=== PATIENT | female | born 1980 | race Caucasian/White ===

== ENCOUNTER 2018-11-05 15:33 | Emergency (ER) | payer BC ==
[2018-11-05] MEDS ORDERED: KETOROLAC TROMETHAMINE 30 MG/1 ML VIAL IVPUSH ONE (15:55)
[2018-11-05] MEDS ORDERED: ONDANSETRON 4 MG/2 ML VIAL IVPB ONE (15:55)
[2018-11-05] MEDS ORDERED: hydrOXYzine PAMOATE 50 MG CAPSULE (FP) PO ONE (15:56)
[2018-11-05 16:03] VITALS: BP 141/86; PULSE 74; TEMP 98.5
[2018-11-05] MEDS ORDERED: hydrOXYzine PAMOATE 25 MG CAPSULE (FP) PO ONE (16:13)
[2018-11-05] MEDS ORDERED: KETOROLAC TROMETHAMINE 30 MG/1 ML VIAL ONE (16:14)
[2018-11-05] MEDS ORDERED: ONDANSETRON 4 MG/2 ML VIAL ONE (16:14)
--- NOTE | 2018-11-05 17:47 | PDOC ---
Documentation entered by Yazmin Lamb SCRIBE, acting as scribe for Lemuel Salinas MD. Lemuel Salinas MD: This documentation has been prepared by the lizaibAdonis gutierrez Natalie, SCRIBE, under my direction and personally reviewed by me in its entirety. I confirm that the documentation accurately reflects all work, treatment, procedures, and medical decision making performed by me. History of Present Illness - General Chief Complaint: Migraine Headache Stated Complaint: MIRAINE History Source: Patient Exam Limitations: No Limitations - History of Present Illness Initial Comments: 11/05/18 15:34 The patient is a 38-year-old female, with a past medical history of migraines, bacterial meningitis (19 yrs old), who presents to the ED with a migraine headache. Her symptoms began on Saturday and she has tried multiple medications that her Neurologist has prescribed for her with no relief of her symptoms. She reports that she has experienced similar migraines in the past, but has not experienced one this severe in quite awhile. She also endorses light and smell sensitivity. The patient is visiting from [place] and has an upcoming appointment with her Neurologist on 11/17/18. The patient denies any fevers, chills, nausea, vomiting, diarrhea, or abdominal pain. She denies any chest pain or shortness of breath. She denies any visual changes, weakness, dizziness, lightheadedness, or changes in strength or sensation. Allergies: Nitrofurantoin, Nitrofurantoin macrocrystalline. Past History - Past Medical History Allergies/Adverse Reactions: Allergies Allergy/AdvReac Type Severity Reaction Status Date / Time nitrofurantoin Allergy Verified 11/05/18 15:34 [From Macrobid] nitrofurantoin Allergy Verified 11/05/18 15:34 macrocrystalline [From Macrobid] Sulfa (Sulfonamide Allergy Verified 11/05/18 15:34 Antibiotics) [Sulfa(Sulfonamide Antibiotics)] Home Medications: Ambulatory Orders Nadolol 80 mg PO DAILY 05/23/12 Amitriptyline HCl [Elavil -] 50 mg PO DAILY 11/05/18 Control 1 mg PO DAILY 11/05/18 Clonazepam [Klonopin] 2 mg PO DAILY 11/05/18 Diclofenac Sodium [Voltaren -] 75 mg PO BID PRN #14 tablet. 11/05/18 Ondansetron [Zofran Odt -] 4 mg SL TID PRN #10 od.tablet 11/05/18 Rizatriptan Benzoate [Rizatriptan] 10 mg PO BID 11/05/18 Tramadol HCl [Ultram] 50 mg PO DAILY 11/05/18 hydrOXYzine PAMOATE [Vistaril -] 25 - 50 mg PO QID PRN #20 capsule 11/05/18 - Immunization History Td Vaccination: Yes Immunization Up to Date: Yes - Suicide/Smoking/Psychosocial Hx Smoking Status: Yes Smoking History: Current every day smoker Number of Cigarettes Smoked Daily: 2 Review of Systems - Review of Systems Able to Perform ROS?: Yes Comments:: 11/05/18 16:06 CONSTITUTIONAL: Absent: fever, chills, diaphoresis, generalized weakness, malaise, loss of appetite HEENT: (+)Photophobia, smell sensitivity. Absent: rhinorrhea, nasal congestion, throat pain, throat swelling, difficulty swallowing, mouth swelling, ear pain. CARDIOVASCULAR: Absent: chest pain, syncope, palpitations, irregular heart rate, lightheadedness , peripheral edema RESPIRATORY: Absent: cough, shortness of breath, dyspnea with exertion, orthopnea, wheezing, stridor, hemoptysis GASTROINTESTINAL: Absent: abdominal pain, abdominal distension, nausea, vomiting, diarrhea, constipation, melena, hematochezia GENITOURINARY: Absent: dysuria, frequency, urgency, hesitancy, hematuria, flank pain, genital pain MUSCULOSKELETAL: Absent: myalgia, arthralgia, joint swelling SKIN: Absent: rash, itching, pallor HEMATOLOGIC/IMMUNOLOGIC: Absent: easy bleeding, easy bruising, lymphadenopathy, frequent infections ENDOCRINE: Absent: unexplained weight gain, unexplained weight loss, heat intolerance, cold intolerance NEUROLOGIC: (+)Headache. Absent: focal weakness or paresthesias, dizziness, unsteady gait, seizure, mental status changes, bladder or bowel incontinence PSYCHIATRIC: Absent: anxiety, depression, suicidal or homicidal ideation, hallucinations. *Physical Exam - Vital Signs Last Vital Signs Temp Pulse Resp BP Pulse Ox 98.5 F 74 18 141/86 100 11/05/18 15:34 11/05/18 15:34 11/05/18 15:34 11/05/18 15:34 11/05/18 15:34 - Physical Exam Comments: 11/05/18 16:07 GENERAL: Well-appearing, well-nourished. No apparent distress. HEENT: Normocephalic, atraumatic. PERRL, EOM intact. CARDIOVASCULAR: Normal S1, S2. Regular rate and rhythm. PULMONARY: Clear to auscultation bilaterally. NEUROLOGICAL: Cranial nerves 2-12 intact. Optic fundi were well visualized and were normal. Strength full and symmetrical. No strength, sensory, or motor deficits. No focal neurological deficits. ED Treatment Course - Medications Given in the ED: ED Medications Discontinued Medications Generic Name Dose Route Start Last Admin Trade Name Freq PRN Reason Stop Dose Admin Hydroxyzine Pamoate 50 mg 11/05/18 15:56 11/05/18 16:18 Vistaril - PO 11/05/18 15:57 50 mg ONCE ONE Administration Ketorolac Tromethamine 30 mg 11/05/18 15:55 11/05/18 16:18 Toradol Injection - IVPUSH 11/05/18 15:56 30 mg ONCE ONE Administration Ondansetron HCl 4 mg 11/05/18 15:55 11/05/18 16:18 Zofran Injection IVPB 11/05/18 15:56 4 mg ONCE ONE Administration Medical Decision Making - Medical Decision Making 11/05/18 17:44 Patient with a long history of migraine headaches managed at home with a triptan. Under increased stress lately with persistent headache for 4-5 days. Continue his chronic beta jhony therapy. Occasionally takes Percocet for chronic right foot pain status post surgery. Has not used Percocet for the headache. Headache is bilateral, behind the eyes, with photophobia, nausea, no vomiting. This is her usual pattern. There is no difference in her symptomatology other than for severity. There are no focal neurologic symptoms or unsteadiness of gait Physical exam is entirely normal, including neurologic Patient treated with Toradol and Vistaril and Zofran, significant relief of symptoms. Prescribed diclofenac, Vistaril, and Zofran for use at home as necessary. Neurology referral. Fully ambulatory and in no significant pain or other distress at discharge. *DC/Admit/Observation/Transfer Diagnosis at time of Disposition: Migraine Qualifiers: Migraine type: unspecified Status migrainosus presence: without status migrainosus Intractability: not intractable Qualified Code(s): G43.909 - Migraine, unspecified, not intractable, without status migrainosus - Discharge Dispostion Disposition: HOME Condition at time of disposition: Improved Decision to Admit order: No - Prescriptions Prescriptions: Diclofenac Sodium [Voltaren -] 75 mg PO BID PRN #14 tablet.dr PRN Reason: Headache hydrOXYzine PAMOATE [Vistaril -] 25 - 50 mg PO QID PRN #20 capsule PRN Reason: Headache Ondansetron [Zofran Odt -] 4 mg SL TID PRN #10 od.tablet PRN Reason: Nausea And/Or Vomiting - Referrals Referrals: Ronald Valdez MD [Staff Physician] - - Patient Instructions Printed Discharge Instructions: DI for Migraine - Post Discharge Activity
== END 2018-11-05 17:01 | disposition home or self-care (01) ==
LOC: FER 15:33
PROC: 3E0333Z Introduction of Anti-inflammatory into Peripheral Vein, Percutaneous Approach (ICD-10-PCS; principal; 2018-11-05)
PROC: 3E033GC Introduction of Other Therapeutic Substance into Peripheral Vein, Percutaneous Approach (ICD-10-PCS; 2018-11-05)
DX: G43.909 Migraine, unspecified, not intractable, without status migrainosus (principal); F17.210 Nicotine dependence, cigarettes, uncomplicated
CPT/HCPCS: 99282-25

== ENCOUNTER 2021-11-04 15:15 | Emergency (ER) | payer BC, OTHER ==
[2021-11-04] MEDS ORDERED: DEXAMETHASONE SOD PHOSPHATE 10 MG/1 ML VIAL IVPUSH ONE (15:43)
[2021-11-04] MEDS ORDERED: METOCLOPRAMIDE HCL INJECTION 10 MG/2 ML VIAL IVPB ONE (15:43)
[2021-11-04] MEDS ORDERED: ACETAMINOPHEN 1000 MG/100 ML BAG IVPB ONE (15:43)
[2021-11-04] MEDS ORDERED: SODIUM CHLORIDE 1,000 ML IV STA (15:43)
[2021-11-04 15:44] VITALS: BP 114/73; PULSE 68; TEMP 97.8; BMI 25.4
[2021-11-04] MEDS ORDERED: ACETAMINOPHEN INJECTION 100 ML IVPB ONE (15:50)
[2021-11-04] MEDS ORDERED: DEXAMETHASONE SOD PHOSPHATE 10 MG/1 ML VIAL ONE (15:50)
[2021-11-04] MEDS ORDERED: METOCLOPRAMIDE HCL INJECTION 10 MG/2 ML VIAL ONE (15:50)
== END 2021-11-04 17:05 | disposition home or self-care (01) ==
LOC: FER 15:15
PROC: 3E0333Z Introduction of Anti-inflammatory into Peripheral Vein, Percutaneous Approach (ICD-10-PCS; principal; 2021-11-04)
PROC: 3E033GC Introduction of Other Therapeutic Substance into Peripheral Vein, Percutaneous Approach (ICD-10-PCS; 2021-11-04)
PROC: 3E033GC Introduction of Other Therapeutic Substance into Peripheral Vein, Percutaneous Approach (ICD-10-PCS; 2021-11-04)
PROC: 3E0337Z Introduction of Electrolytic and Water Balance Substance into Peripheral Vein, Percutaneous Approach (ICD-10-PCS; 2021-11-04)
DX: G43.909 Migraine, unspecified, not intractable, without status migrainosus (principal)
CPT/HCPCS: 99284-25; J1100